=== PATIENT | male | born 1945 | race Caucasian/White ===

== ENCOUNTER 2024-05-29 08:51 | Day surgery (SDC) | payer MEDICARE, OTHER ==
[2024-05-29] MEDS ORDERED: Sodium Chloride 0.9% 10 ML Syringe FLUSH PRN (09:00)
[2024-05-29] MEDS: Sodium Chloride 0.9% 1,000 ML IV SCH (10:15)
[2024-05-29 14:20] VITALS: BP 155/76; PULSE 78
== END 2024-05-29 11:20 | disposition home or self-care (01) ==
LOC: KA.SDS 08:51
PROVIDERS: ATTEND Family Medicine
DX: Z12.11 Encounter for screening for malignant neoplasm of colon (principal); K57.30 Diverticulosis of large intestine without perforation or abscess without bleeding; K64.8 Other hemorrhoids; I25.10 Atherosclerotic heart disease of native coronary artery without angina pectoris; I12.9 Hypertensive chronic kidney disease with stage 1 through stage 4 chronic kidney disease, or unspecified chronic kidney disease; E11.22 Type 2 diabetes mellitus with diabetic chronic kidney disease; N18.30 Chronic kidney disease, stage 3 unspecified; E03.9 Hypothyroidism, unspecified; E78.2 Mixed hyperlipidemia; E66.9 Obesity, unspecified; Z79.82 Long term (current) use of aspirin; Z79.899 Other long term (current) drug therapy; Z79.890 Hormone replacement therapy; Z86.0101 Personal history of adenomatous and serrated colon polyps
CPT/HCPCS: 82947; G0105; J7030